=== PATIENT | female | born 1970 | race Caucasian/White ===

== ENCOUNTER 2017-01-10 17:59 | Emergency (ER) | payer MEDICARE, OTHER ==
[~2017-01-10] VITALS: Ht 182.9 cm; Wt 89.8 kg
[~2017-01-10 17:59] MED LIST: ATOM100C PO; LISD40CA2 PO; ZIPR60CA2 PO; ZOLP10TA2 PO
--- NOTE | 2017-01-10 18:30 | NUR ---
PT BIB [facility] C/O BACK AND FLANK PAIN X 1 MONTH WITH DECREASE IN URINATION. DENIES HEMATURIA BUT REPORTS PAIN ON URINATION. RESP EVEN UNLABORED. SKIN WARM NONDIAPHORETIC. ALSO REPORTS DIZZINESS AND OCCASIONALLY "PASSING OUT". DENIES TRAUMA. NO NEURO DEFICITS. IN ER BED 09 ON MONITOR. Addendum: 01/10/17 at 2218 by HFOX ALSO NOTED WITH DEBI LOWER EXT EDEMA, PITTING.
[2017-01-10 19:18] LABS: BASOPHILS % (AUTO) 0.6 % (0.0-2.0); EOSINOPHILS # (AUTO) 0.2 /CMM (0.0-0.7); EOSINOPHILS % (AUTO) 2.8 % (0.0-6.0); HEMATOCRIT 37 % (33-45); HEMOGLOBIN 12.4 g/dL (11.5-14.8); LYMPHOCYTES # (AUTO) 3.7 /CMM (0.8-4.8); LYMPHOCYTES % (AUTO) 51.1 % (20.0-44.0); MEAN CORPUSCULAR HEMOGLOBIN 29 PG (26.0-33.0); MEAN CORPUSCULAR HGB CONC 34 g/dl (31.0-36.0); MEAN CORPUSCULAR VOLUME 87 fL (82-100); MONOCYTES # (AUTO) 0.5 /CMM (0.1-1.30); MONOCYTES % (AUTO) 7.4 % (2.0-12.0); NEUTROPHILS # (AUTO) 2.8 /CMM (1.8-8.9); NEUTROPHILS % (AUTO) 38.1 % (43.0-81.0); PLATELET COUNT (AUTO) 251 /CMM (150-450); RDW COEFFICIENT OF VARIATION 16.3 (11.5-15.0); RED BLOOD CELL COUNT(AUTO) 4.23 MIL/uL (4.0-5.2); WHITE BLOOD COUNT (AUTO) 7.2 K/uL (4.3-11.0)
--- NOTE | 2017-01-10 20:00 | NUR ---
PT RESTING QUIETLY, NAD NOTED. VSS.
[2017-01-10 20:11] LABS: ALBUMIN 3.4 g/dL (3.4-5.0); BILIRUBIN,DIRECT 0.1 mg/dL (0.0-0.2); BILIRUBIN,TOTAL 0.4 mg/dL (0.2-1.0); CALCIUM, SERUM 8.5 mg/dL (8.5-10.1); POTASSIUM 3.5 mmol/L (3.5-5.1); TOTAL PROTEIN, SERUM 7.3 g/dL (6.4-8.2)
[2017-01-10 20:53] LABS: INR 0.94 (0.87-1.13); PROTHROMBIN TIME 9.8 SECS (9.5-12.7)
--- NOTE | 2017-01-10 21:20 | NUR ---
PT AMBULATED TO RESTROOM WIT HSTEADY GAIT.
[2017-01-10 21:30] LABS: APPEARANCE,URINE Clear (CLEAR); BILIRUBIN,URINE SMALL (NEGATIVE); BLOOD, URINE Negative Ery/uL (NEGATIVE); COLOR,URINE Yellow (YELLOW); KETONES,URINE Negative (NEGATIVE); LEUKOCYTE ESTERASE ,URINE Negative (NEGATIVE); NITRITE, URINE Negative (NEGATIVE); PH,URINE 5.5 (5.0-8.0); PROTEIN,URINE Trace mg/dl (NEGATIVE); UGLUCOSE Negative (NEGATIVE); UROBILINOGEN,URINE 0.2 EU/dL (0.2)
[2017-01-10 21:44] LABS: BACTERIA,URINE Few /HPF (None Seen); MUCUS,URINE Moderate /LPF (None Seen); RBC,URINE 0-2 /HPF (0-2); SQUAMOUS EPITHELIAL CELL,UR Moderate /HPF (None Seen); URINE AMORPHOUS URATE Few /HPF (None Seen)
[2017-01-10] MEDS ORDERED: TRAMADOL HCL 50 MG TABLET PO ONE (22:00)
[2017-01-10] MEDS ORDERED: TRAMADOL HCL 50 MG TABLET ONE (22:01)
--- NOTE | 2017-01-10 22:11 | NUR ---
IV removed. Catheter intact and site benign. Pressure and 4x4 applied to site. No bleeding noted. Patient discharged to home in stable condition. Written and verbal after care instructions given. Patient verbalizes understanding of instruction. AMBULATORY WITH STEADY GAIT.
[2017-01-10 22:15] VITALS: BP 133/68
== END 2017-01-10 22:16 | disposition home or self-care (01) ==
LOC: ER 18:01
DX: M54.5 Low back pain (principal); R60.0 Localized edema; F42.9 Obsessive-compulsive disorder, unspecified; F90.9 Attention-deficit hyperactivity disorder, unspecified type; G47.00 Insomnia, unspecified; G89.29 Other chronic pain; Z98.84 Bariatric surgery status; F31.9 Bipolar disorder, unspecified; W01.198A Fall on same level from slipping, tripping and stumbling with subsequent striking against other object, initial encounter; Y92.89 Other specified places as the place of occurrence of the external cause; Y93.89 Activity, other specified; Y99.8 Other external cause status
CPT/HCPCS: 36415; 70450-TC; 71010-TC; 80048-TC; 80076-TC; 81000-TC; 82550-TC; 83690-TC; 84703-TC; 85025-TC; 85730-TC; A4606; Z7610

== ENCOUNTER 2017-01-30 03:48 | Emergency (ER) | payer MEDICARE, OTHER ==
[~2017-01-30] VITALS: Ht 182.9 cm; Wt 81.6 kg
--- NOTE | 2017-01-30 04:00 | NUR ---
PT BIBSELF AMBULATORY TO ER BED 5. PT STATES "SHE WAS SLEEP WALKING AND HIT HER HEAD AGAINST THE WALL IN HER HALLWAY", PT NOTED WITH A LAC ON HER CHIN. PT AOX3 RR EVEN AND UNLABORED. NO SOB NOTED. NAD NOTED. NO NVD AT THIS TIME. PT GOWNED AND PLACED ON MONITOR. DR. BOWENS AT BEDSIDE FOR EVAL.
[2017-01-30] MEDS ORDERED: LIDOCAINE 2%-EPI 1:100,000 30 ML VIAL ONE (04:04)
[2017-01-30] MEDS ORDERED: SODIUM BICARBONATE 5 ML VIAL ONE ×2 (04:06→04:07)
[2017-01-30] MEDS ORDERED: ONDANSETRON 4 MG TAB.RAPDIS ONE (04:11)
[2017-01-30] MEDS ORDERED: CEPHALEXIN MONOHYDRATE 500 MG CAPSULE PO ONE ×2 (04:12→04:30)
[2017-01-30] MEDS ORDERED: HYDROCODONE/APAP 10/325MG 1 EA TABLET ONE (04:12)
[2017-01-30] MEDS ORDERED: TDAP [DIPH/PERTUSSIS/TET] 0.5 ML VIAL IM ONE ×2 (04:12→04:30)
--- NOTE | 2017-01-30 04:28 | NUR ---
DR. BOWENS AT BEDSIDE FOR LAC REPAIR.
[2017-01-30] MEDS ORDERED: LIDOCAINE 1%-EPI 1:100,000 20 ML VIAL TP ONE (04:30)
[2017-01-30] MEDS ORDERED: SODIUM BICARBONATE 5 ML VIAL TP ONE (04:30)
[2017-01-30] MEDS ORDERED: HYDROCODONE/APAP 10/325MG 1 EA TABLET PO ONE (04:30)
[2017-01-30] MEDS ORDERED: ONDANSETRON 4 MG TAB.RAPDIS SL ONE (04:30)
--- NOTE | 2017-01-30 04:48 | NUR ---
PT TO RADIOLOGY FOR CT HEAD VIA WC
--- NOTE | 2017-01-30 04:57 | NUR ---
PT RETURNED FROM CT.
--- NOTE | 2017-01-30 05:26 | NUR ---
Patient discharged to home in stable condition. Written and verbal after care instructions given. Patient verbalizes understanding of instruction. ambulatory with a steady gait. instructed pt not to drive. pt verbalize understanding.
[2017-01-30 05:28] VITALS: BP 110/52
== END 2017-01-30 05:29 | disposition home or self-care (01) ==
LOC: ER 03:49
DX: S01.81XA Laceration without foreign body of other part of head, initial encounter (principal); F51.3 Sleepwalking [somnambulism]; F42.9 Obsessive-compulsive disorder, unspecified; F90.9 Attention-deficit hyperactivity disorder, unspecified type; G89.29 Other chronic pain; Z23 Encounter for immunization; Z88.0 Allergy status to penicillin; Z98.84 Bariatric surgery status; W22.01XA Walked into wall, initial encounter; Y93.01 Activity, walking, marching and hiking; Y92.89 Other specified places as the place of occurrence of the external cause; Y99.8 Other external cause status
CPT/HCPCS: 70450-TC; 90715; A4606; A6402; J3490; Q0162; Z7610

== ENCOUNTER 2017-02-06 09:23 | Emergency (ER) | payer MEDICARE, OTHER ==
[~2017-02-06] VITALS: Ht 182.9 cm; Wt 80.3 kg
[2017-02-06 09:30] VITALS: BP 130/69
== END 2017-02-06 09:44 | disposition home or self-care (01) ==
LOC: ER 09:27
DX: S01.80XD Unspecified open wound of other part of head, subsequent encounter (principal); F42.9 Obsessive-compulsive disorder, unspecified; F90.9 Attention-deficit hyperactivity disorder, unspecified type; F31.9 Bipolar disorder, unspecified; M54.5 Low back pain; G89.29 Other chronic pain; Z88.0 Allergy status to penicillin; Z98.84 Bariatric surgery status; Z98.890 Other specified postprocedural states
CPT/HCPCS: A4606; Z7502; Z7610

== ENCOUNTER 2018-04-10 17:02 | Emergency (ER) | payer MEDICARE, OTHER ==
[~2018-04-10] VITALS: Ht 182.9 cm; Wt 86.2 kg
[~2018-04-10 17:02] MED LIST changes: +LISD40CA PO; -LISD40CA2 PO
[2018-04-10 17:30] VITALS: BP 101/65
== END 2018-04-10 19:38 | disposition home or self-care (01) ==
LOC: ER 17:05
DX: M79.672 Pain in left foot (principal); G89.29 Other chronic pain; M54.5 Low back pain; F31.9 Bipolar disorder, unspecified; F90.9 Attention-deficit hyperactivity disorder, unspecified type; F42.8 Other obsessive-compulsive disorder; K56.609 Unspecified intestinal obstruction, unspecified as to partial versus complete obstruction; Z88.0 Allergy status to penicillin; Z98.84 Bariatric surgery status; W06.XXXA Fall from bed, initial encounter; Y93.89 Activity, other specified; Y92.89 Other specified places as the place of occurrence of the external cause; Y99.8 Other external cause status
CPT/HCPCS: 73630; 99284; A4606; Z7610

== ENCOUNTER 2019-04-22 15:07 | Emergency (ER) | payer MEDICARE, OTHER ==
[~2019-04-22] VITALS: Ht 182.9 cm; Wt 108.9 kg
[2019-04-22] MEDS ORDERED: IBUPROFEN 400 MG TABLET PO ONE (15:30)
--- NOTE | 2019-04-22 15:30 | NUR ---
PT [id number] [facility] C/O LLE PAIN. PER REPORT PT APPEARS LETHARGIC. on room air, beathing evenly and unlabored. connected to the monitor and pulse ox. kept comfortabke, will continue to monitor accordingly.
[2019-04-22] MEDS ORDERED: IBUPROFEN 400 MG TABLET ONE (15:47)
[2019-04-22 16:36] LABS: BASOPHILS # (AUTO) 0.1 /CMM (0.0-0.2); BASOPHILS % (AUTO) 0.8 % (0.0-2.0); EOSINOPHILS % (AUTO) 1.3 % (0.0-6.0); HEMATOCRIT 33 % (33-45); LYMPHOCYTES # (AUTO) 2.3 /CMM (0.8-4.8); LYMPHOCYTES % (AUTO) 25.1 % (20.0-44.0); MEAN CORPUSCULAR HGB CONC 33 g/dl (31.0-36.0); MEAN CORPUSCULAR VOLUME 88 fL (82-100); MONOCYTES # (AUTO) 0.9 /CMM (0.1-1.30); MONOCYTES % (AUTO) 9.5 % (2.0-12.0); NEUTROPHILS # (AUTO) 5.8 /CMM (1.8-8.9); NEUTROPHILS % (AUTO) 63.3 % (43.0-81.0); PLATELET COUNT (AUTO) 250 /CMM (150-450); RED BLOOD CELL COUNT(AUTO) 3.79 MIL/uL (4.0-5.2); WHITE BLOOD COUNT (AUTO) 9.2 K/uL (4.3-11.0)
[2019-04-22 16:50] LABS: CARBON DIOXIDE 27 mmol/L (21-32); CHLORIDE 103 mmol/L (98-107); CREATININE 0.9 mg/dL (0.6-1.3); GLUCOSE 84 mg/dL (74-106); POTASSIUM 4.1 mmol/L (3.5-5.1); SODIUM SERUM 139 mmol/L (136-145); UREA NITROGEN, BLOOD 25 mg/dL (7-18)
[2019-04-22 17:37] VITALS: BP 145/81
--- NOTE | 2019-04-22 17:38 | NUR ---
Patient discharged to home in stable condition. Written and verbal after care instructions given. Patient verbalizes understanding of instruction.IV removed. Catheter intact and site benign. Pressure and 4x4 applied to site. No bleeding noted.
== END 2019-04-22 17:38 | disposition home or self-care (01) ==
LOC: ER 15:17
DX: S92.342A Displaced fracture of fourth metatarsal bone, left foot, initial encounter for closed fracture (principal); S92.352A Displaced fracture of fifth metatarsal bone, left foot, initial encounter for closed fracture; M25.571 Pain in right ankle and joints of right foot; M54.5 Low back pain; G89.29 Other chronic pain; F31.9 Bipolar disorder, unspecified; F90.9 Attention-deficit hyperactivity disorder, unspecified type; F42.8 Other obsessive-compulsive disorder; Z98.890 Other specified postprocedural states; Z88.0 Allergy status to penicillin; V09.9XXA Pedestrian injured in unspecified transport accident, initial encounter; Y93.01 Activity, walking, marching and hiking; Y92.488 Other paved roadways as the place of occurrence of the external cause; Y99.8 Other external cause status
CPT/HCPCS: 36415; 71045-TC; 73564-TC; 73610-TC; 73620-TC; 80048-TC; 82962-TC; 84484-TC; 85025-TC

== ENCOUNTER 2020-06-09 12:54 | Emergency (ER) | payer MEDICARE, OTHER ==
[~2020-06-09] VITALS: Ht 185.4 cm; Wt 104.3 kg
--- NOTE | 2020-06-09 13:07 | NUR ---
EDMUND FROM HOME TO ER BED 12. AAOX4. NOT IN RESP DISTRESS. AMBULATORY. CAME IN FOR R ANKLE PAIN S/P SLIP AND FALL. PT IS COMPLAINING OF PAIN 12/25. PT WAS REPORTED AMBULATORY ON SCENE, ROM IS LIMITED D/T PAIN. MD WAS AT THE BEDSIDE FOR EVAL. ORDERS RECEIVED. RADIOLOGY NOTIFIED.
--- NOTE | 2020-06-09 14:57 | NUR ---
EMT AT BEDSIDE FOR SPLINTING
--- NOTE | 2020-06-09 15:06 | NUR ---
Patient discharged to home in stable condition. Written and verbal after care instructions given. Patient verbalizes understanding of instruction. Pt ambulatory with a steady gait
[2020-06-09 15:49] VITALS: BP 132/80
== END 2020-06-09 15:50 | disposition home or self-care (01) ==
LOC: ER 13:03
DX: S92.141A Displaced dome fracture of right talus, initial encounter for closed fracture (principal); M54.5 Low back pain; G89.29 Other chronic pain; Z98.890 Other specified postprocedural states; Z88.0 Allergy status to penicillin; Z79.899 Other long term (current) drug therapy; W01.0XXA Fall on same level from slipping, tripping and stumbling without subsequent striking against object, initial encounter; Y93.01 Activity, walking, marching and hiking; Y92.090 Kitchen in other non-institutional residence as the place of occurrence of the external cause; Y99.8 Other external cause status
CPT/HCPCS: 73700-TC

== ENCOUNTER 2020-06-26 20:58 | Emergency (ER) | payer OTHER ==
[~2020-06-26] VITALS: Ht 185.4 cm; Wt 104.3 kg
--- NOTE | 2020-06-26 21:21 | NUR ---
PT AAOX4. BIBRA C/O R ARM PAIN S/P ROLLING OFF BED. NOTED R EYE HEMATOMA, R HIP HEMATOMA, R UPPER ARM HEMATOMA, L CHEST WALL HEMATOMA. (-) KO. PT ON MONITOR AND PULSE OX. VSS. AWAITING MD FOR EVAL AND ORDERS.
[2020-06-26] MEDS ORDERED: ACETAMINOPHEN 325 MG TABLET ONE (22:05)
[2020-06-26] MEDS: ACETAMINOPHEN 325 MG TABLET PO ONE (22:08)
[2020-06-26] MEDS ORDERED: ONDANSETRON 4 MG TAB.RAPDIS SL ONE (22:30)
[2020-06-26] MEDS ORDERED: HYDROCODONE/APAP 5/325MG TABLET PO ONE (22:30)
--- NOTE | 2020-06-26 22:36 | NUR ---
CALLED FAMILY MEMBER MULTIPLE TIMES, NO ANSWER.
--- NOTE | 2020-06-27 00:22 | NUR ---
family memebr picked up pt.
[2020-06-27 00:23] VITALS: BP 109/67
--- NOTE | 2020-06-27 00:23 | NUR ---
Patient discharged to home in stable condition. Written and verbal after care instructions given. Patient verbalizes understanding of instruction and RX. Pt wheeled out of E.D
== END 2020-06-27 00:23 | disposition home or self-care (01) ==
LOC: ER 20:58
DX: S42.291A Other displaced fracture of upper end of right humerus, initial encounter for closed fracture (principal); S05.11XA Contusion of eyeball and orbital tissues, right eye, initial encounter; S20.212A Contusion of left front wall of thorax, initial encounter; S40.022A Contusion of left upper arm, initial encounter; S40.021A Contusion of right upper arm, initial encounter; S80.11XA Contusion of right lower leg, initial encounter; M54.5 Low back pain; G89.29 Other chronic pain; Z98.890 Other specified postprocedural states; Z88.0 Allergy status to penicillin; Z79.899 Other long term (current) drug therapy; W06.XXXA Fall from bed, initial encounter; Y93.89 Activity, other specified; Y92.89 Other specified places as the place of occurrence of the external cause; Y99.8 Other external cause status
CPT/HCPCS: 73030-TC; 82962-TC

== ENCOUNTER 2020-08-09 13:44 | Emergency (ER) | payer OTHER ==
[~2020-08-09] VITALS: Ht 185.4 cm; Wt 130.6 kg
--- NOTE | 2020-08-09 13:54 | NUR ---
BIBRA 62 FROM HOME C/O OD OF UNKNOWN AMOUNT OF NORCO. 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 BG 141. PT AAOX4, SITTING UP & DROWSY. RR EVEN & UNLABORED. PLACED ON ORACLE WMS CONSULTANT, ST. O2 SAT 100% RA. AWAITING EVAL BY CATA. WILL CONT TO MONITOR.
[2020-08-09 14:15] LABS: BASOPHILS % (AUTO) 0.5 % (0.0-2.0); EOSINOPHILS % (AUTO) 0.3 % (0.0-6.0); HEMATOCRIT 35 % (33-45); HEMOGLOBIN 11.2 g/dL (11.5-14.8); LYMPHOCYTES # (AUTO) 2.7 /CMM (0.8-4.8); LYMPHOCYTES % (AUTO) 29.3 % (20.0-44.0); MEAN CORPUSCULAR HGB CONC 32 g/dl (31.0-36.0); MEAN CORPUSCULAR VOLUME 89 fL (82-100); MONOCYTES # (AUTO) 0.6 /CMM (0.1-1.30); MONOCYTES % (AUTO) 6.6 % (2.0-12.0); NEUTROPHILS # (AUTO) 5.8 /CMM (1.8-8.9); NEUTROPHILS % (AUTO) 63.3 % (43.0-81.0); PLATELET COUNT (AUTO) 248 /CMM (150-450); WHITE BLOOD COUNT (AUTO) 9.2 K/uL (4.3-11.0)
[2020-08-09 14:21] LABS: CALCIUM, SERUM 9.3 mg/dL (8.5-10.1); CARBON DIOXIDE 22 mmol/L (21-32); CHLORIDE 105 mmol/L (98-107); GLUCOSE 115 mg/dL (74-106); POTASSIUM 3.4 mmol/L (3.5-5.1); SODIUM SERUM 138 mmol/L (136-145); UREA NITROGEN, BLOOD 9 mg/dL (7-18)
[2020-08-09 14:26] LABS: ALANINE AMINOTRANSFERASE 15 U/L (12-78); ALBUMIN 3.1 g/dL (3.4-5.0); ALKALINE PHOSPHATASE 150 U/L (46-116); ASPARTATE AMINOTRANSFERASE 19 U/L (15-37); BILIRUBIN,DIRECT 0.1 mg/dL (0.0-0.2); BILIRUBIN,TOTAL 0.3 mg/dL (0.2-1.0); TOTAL PROTEIN, SERUM 7.5 g/dL (6.4-8.2)
[2020-08-09 14:27] LABS: ACETAMINOPHEN < 0 ug/ml (10-30); ALCOHOL, BLOOD < 3 mg/dL (0-0)
--- NOTE | 2020-08-09 16:00 | NUR ---
PT AAOX4, VSS. FULLY AWAKE, NAD NOTED AT THIS TIME. WILL CONT TO MONITOR.
[2020-08-09 16:09] LABS: BILIRUBIN,URINE Negative (NEGATIVE); COLOR,URINE YELLOW (YELLOW); LEUKOCYTE ESTERASE ,URINE Negative (NEGATIVE); NITRITE, URINE Negative (NEGATIVE); PH,URINE 5.5 (5.0-8.0); PROTEIN,URINE 30 mg/dl (NEGATIVE); UGLUCOSE Negative (NEGATIVE); UROBILINOGEN,URINE 0.2 EU/dL (0.2)
[2020-08-09 16:13] LABS: BACTERIA,URINE None seen /HPF (None Seen); RBC,URINE 0-2 /HPF (0-2); SQUAMOUS EPITHELIAL CELL,UR Few /HPF (None Seen); WBC,URINE 0-2 /HPF (0-3)
--- NOTE | 2020-08-09 16:52 | NUR ---
Patient discharged to home in stable condition. Written and verbal after care instructions given. Patient verbalizes understanding of instruction. IV removed. Catheter intact and site benign. Pressure and 4x4 applied to site. No bleeding noted.
[2020-08-09 16:53] VITALS: BP 127/72
== END 2020-08-09 16:54 | disposition home or self-care (01) ==
LOC: ER 13:45
DX: F19.10 Other psychoactive substance abuse, uncomplicated (principal); G89.29 Other chronic pain; F31.9 Bipolar disorder, unspecified; F90.9 Attention-deficit hyperactivity disorder, unspecified type; F42.9 Obsessive-compulsive disorder, unspecified; Z98.890 Other specified postprocedural states; Z88.0 Allergy status to penicillin; Z79.899 Other long term (current) drug therapy
CPT/HCPCS: 36415; 80048-TC; 80076-TC; 81001; 84702-TC; 84703-TC; 85025-TC; G0480